=== PATIENT | female | born 1980 | race Caucasian/White ===

== ENCOUNTER 2019-08-16 12:24 | Inpatient (IN) ==
[2019-08-16] MEDS ORDERED: TUBERSOL ID ONE (15:08)
[2019-08-16] MEDS ORDERED: ROBAXIN PO PRN (15:08)
[2019-08-16] MEDS ORDERED: IMODIUM PO PRN (15:08)
[2019-08-16] MEDS ORDERED: DESYREL PO PRN (15:08)
[2019-08-16] MEDS ORDERED: ATARAX PO PRN (15:08)
[2019-08-16] MEDS ORDERED: TYLENOL PO PRN (15:08)
[2019-08-16] MEDS ORDERED: D5W 1,000 ML IV PRN (15:08)
[2019-08-16] MEDS ORDERED: SINEMET 25/100 PO PRN (15:08)
[2019-08-16] MEDS ORDERED: MOTRIN PO PRN (15:08)
[2019-08-16] MEDS ORDERED: SENOKOT PO PRN (15:08)
[2019-08-16] MEDS ORDERED: PHENOBARBITAL IV PRN (15:08)
[2019-08-16] MEDS ORDERED: MAALOX PLUS LIQUID PO PRN (15:08)
[2019-08-16] MEDS ORDERED: SEROQUEL PO PRN (15:08)
[2019-08-16] MEDS ORDERED: ZOFRAN IV PRN (15:08)
[2019-08-16] MEDS ORDERED: ZOFRAN ODT PO PRN (15:08)
[2019-08-16] MEDS ORDERED: LIBRIUM PO PRN (15:08)
[2019-08-16] MEDS ORDERED: DULCOLAX PR PRN (15:08)
[2019-08-16] MEDS ORDERED: BENTYL PO PRN (15:08)
[2019-08-16] MEDS ORDERED: NICODERM PATCH TD PRN (15:08)
[2019-08-16] MEDS ORDERED: SUBUTEX SL SCH (15:15)
[2019-08-16 16:04] LABS: HEMATOCRIT 36.6 % (37.0-47.0); HEMOGLOBIN 12.4 g/dL (12.0-16.0); MCH 27.9 PG (27-31); MCHC 33.9 g/dL (33-37); MCV 82.4 FL (81-99); MPV 11.5 FL (7.4-10.4); RBC 4.44 XMIL (4.2-5.4); RDW 15.1 % (11.5-14.5); WBC 11.51 X1000 (4.8-10.8)
[2019-08-16 16:23] LABS: AGAP 12; ALBUMIN 3.2 g/dL (3.5-5.0); ALKALINE PHOSPHATASE 69 U/L (32-104); AMYLASE 22 U/L (20-200); BUN 3 mg/dL (8-22); CALCIUM 9.1 mg/dL (8.8-10.2); CHLORIDE 103 mmol/L (98-107); COSMO 269; CREATININE 0.3 mg/dL (0.5-0.9); ESTIMATED GFR > 60; GLUCOSE 99 mg/dL (70-104); GOT 23 U/L (10-30); GPT 23 U/L (10-36); LIPASE 12 U/L (13-60); POTASSIUM 3.8 mmol/L (3.5-5.1); SODIUM 136 mmol/L (136-145); TCO2 21 mmol/L (25-35)
[2019-08-16 16:25] LABS: INR 0.98; PROTIME 13.5 Seconds (11.0-16.0)
[2019-08-16 17:44] LABS: URINE SOURCE VOIDED
[2019-08-16 17:54] LABS: BILIRUBIN URINE NEGATIVE (NEGATIVE); BLOOD URINE NEGATIVE (NEGATIVE); CLARITY CLEAR (CLEAR); COLOR YELLOW; GLUCOSE URINE NEGATIVE (NEGATIVE); KETONE URINE NEGATIVE (NEGATIVE); LEUKOCYTES URINE NEGATIVE (NEGATIVE); NITRITE URINE NEGATIVE (NEGATIVE); PROTEIN URINE NEGATIVE (NEGATIVE); UROBILINOGEN URINE NORMAL
[2019-08-16 20:27] LABS: UR AMPHETAMINES QUAL NONE DETECTED (NONE DETECT); UR BARBITUATES QUAL NONE DETECTED (NONE DETECT); UR BENZODIAZEPIN QUAL NONE DETECTED (NONE DETECT); UR CANNABINOIDS QUAL PRESUMPTIVE POSITIVE (NONE DETECT); UR COCAINE QUAL PRESUMPTIVE POSITIVE (NONE DETECT); UR METHADONE QUAL NONE DETECTED (NONE DETECT); UR METHAMPHETAMINE QUAL PRESUMPTIVE POSITIVE (NONE DETECT); UR OPIATES QUAL PRESUMPTIVE POSITIVE (NONE DETECT)
[2019-08-16 20:28] LABS: UR OXYCODONE QUAL NONE DETECTED (NONE DETECT); UR PCP QUAL NONE DETECTED (NONE DETECT); UR PROPOXYPHENE QUAL NONE DETECTED (NONE DETECT); UR TCA QUAL NONE DETECTED (NONE DETECT)
[2019-08-16] MEDS: SUBUTEX SL SCH (20:42)
[2019-08-17] MEDS: PROTONIX PO SCH ×2 (05:27→07:24)
[2019-08-17] MEDS: SUBUTEX SL SCH ×3 (05:29→20:36)
--- NOTE | 2019-08-17 11:24 | PROGRESS NOTE ---
DATE: 08/17/2019 SUBJECTIVE: The patient notes that she feels terrible, but she actually feels a little bit better than she did. Denies any fevers or chills. She is still having muscle aches and sweating. OBJECTIVE: Vital Signs: Reviewed. General: She is awake and alert. She is in no respiratory distress. HEENT: Normocephalic. Neck: Supple. Cardiovascular: Regular rate. No murmurs. Chest: Clear and nonlabored. Abdomen: Soft. Extremities: Moves all extremities. Neurologic: No focal changes. ASSESSMENT: 1. Nausea and vomiting. 2. Abdominal pain. 3. Myalgias. 4. Paresthesias. 5. Paroxysmal sweating. 6. Opiate abuse withdrawal. 7. Polysubstance abuse. 8. . PLAN: We will continue on Subutex. Continue to head counselor. Further orders as needed. cc: Marshall Gibson MD
[2019-08-17] MEDS: VITAMIN B-1 PO SCH (13:11)
[2019-08-17] MEDS: FOLIC ACID PO SCH (13:11)
[2019-08-17] MEDS: THERA M PLUS PO SCH (13:12)
[2019-08-18] MEDS: SUBUTEX SL SCH ×2 (04:17→17:40)
[2019-08-18] MEDS: PROTONIX PO SCH (12:27)
[2019-08-18] MEDS: THERA M PLUS PO SCH (12:27)
[2019-08-18] MEDS: FOLIC ACID PO SCH (12:27)
[2019-08-18] MEDS: VITAMIN B-1 PO SCH (12:27)
--- NOTE | 2019-08-18 13:05 | HISTORY AND PHYSICAL ---
CHIEF COMPLAINT: Nausea, vomiting. HISTORY OF PRESENT ILLNESS: The patient is a 38-year-old female who presented to [facility] secondary to nausea, vomiting, abdominal pain, and myalgias. Notes that she is , and she wants to get her life back under control for herself and her baby. SOCIAL HISTORY: The patient is . She is unemployed. Lives at home in [place]. PAST MEDICAL HISTORY: Untreated hepatitis C, bipolar, depression, anxiety, history of seizures due to withdrawal. MEDICATION: She is not on any current medications. ALLERGIES: No known drug allergies. REVIEW OF SYSTEMS: CINA score is 15 secondary to nausea, vomiting, abdominal pain, myalgias, frequent hot and cold temperature changes, frequent sweating, restless, fidgety, yawning, watery eyes, unable to sit still, poor appetite. Denies any chest pain or palpitations. Denies any fevers. Denies dysuria, frequency, urgency, hesitancy, polyuria or polydipsia. Denies skin rashes, weight loss, or weight gain. SUBSTANCE ABUSE HISTORY: The patient was in [facility] for 12 weeks in 2012, remained sober for approximately 5 years. Notes that substance use has caused legal problems. She has a court date soon. Started alcohol as early as age 6, rarely drinks. Started marijuana as early as age 8, was a former daily user, has not used recently. Started meth at 11, currently uses twice daily. Started opiates at 14, currently uses morphine or heroin IV daily. Started nicotine as early as age 9, currently smokes 2 to 3 cigarettes a day. FAMILY HISTORY: Positive for substance use and abuse. PHYSICAL EXAMINATION: VITAL SIGNS: Reviewed. GENERAL: The patient is awake, and alert. She is in no current respiratory distress. HEENT: Normocephalic. NECK: Supple. CARDIOVASCULAR: Regular rate. No murmurs. CHEST: Clear. Nonlabored. ABDOMEN: Soft. EXTREMITIES: Moves all extremities. NEUROLOGIC: No focal changes. SKIN: Warm, dry, no rashes. ASSESSMENT: 1. Nausea and vomiting. 2. Abdominal pain. 3. Myalgias. 4. Paresthesias. 5. Paroxysmal sweating. 6. Opiate abuse withdrawal and stabilization. 7. Second trimester . PLAN: We are going to admit the patient to the hospital, place her on Subutex, wean down as tolerated. Continue counseling. Further orders as needed. ,, cc: Marshall Gibson MD
--- NOTE | 2019-08-18 18:22 | PROGRESS NOTE ---
DATE: 08/18/2019 SUBJECTIVE: The patient notes that overall she is starting to feel better. Denies any fevers, chills. Still having some muscle aches and occasional sweating episodes. OBJECTIVE: Vital signs reviewed. She is awake. Temperature 97, pulse 80, respiratory rate 18, BP 119/76. General: The patient is in no current respiratory distress.HEENT: Normocephalic. Neck supple. Cardiovascular: Regular rate. No murmurs. Chest clear, nonlabored. Abdomen soft. Extremities: Moves all extremities. Neurologic: No focal changes. ASSESSMENT: 1. Nausea and vomiting. 2. Abdominal pain. 3. Myalgias. 4. Paresthesias. 5. Paroxysmal sweating. 6. Opiate abuse, withdrawal and stabilization. 7. Polysubstance use and abuse. 8. . PLAN: We will continue the patient in the hospital. Continue Subutex. We will decrease to 4 mg twice daily today. If she tolerates, hopefully she can discharge home tomorrow. cc: Marshall Gibson MD
[2019-08-19 03:51] VITALS: BP 118/71
[2019-08-19] MEDS: PROTONIX PO SCH (06:33)
[2019-08-19] MEDS: SUBUTEX SL SCH (06:33)
[2019-08-19] MEDS: VITAMIN B-1 PO SCH (09:19)
[2019-08-19] MEDS: FOLIC ACID PO SCH (09:19)
[2019-08-19] MEDS: THERA M PLUS PO SCH (09:19)
[2019-08-19] MEDS ORDERED: FLU VACCINE IM ONE (09:47)
--- NOTE | 2019-08-19 13:19 | DISCHARGE SUMMARY ---
ADMISSION DATE: 08/16/2019 DISCHARGE DATE: 08/19/2019 DISCHARGE DIAGNOSIS: 1. Nausea, vomiting. 2. Abdominal pain. 3. Myalgias. 4. Paresthesias. 5. Paroxysmal swelling. 6. Opioid abuse withdrawal and stabilization. 7. . 8. Multiple drug use and abuse. CONSULTATIONS: None. PROCEDURES: None. BRIEF HOSPITAL COURSE: The patient is a 38-year-old female who presented to [facility]. She is approximately 5 months . She has been using and abusing polysubstances and desires to get her life under control. She was admitted and placed on Subutex as well as other symptomatic medications. Thankfully on discharge she is awake, alert. She is in no distress. Overall, she is feeling better. DISPOSITION: Patient will be discharged home on Subutex 4 mg twice daily. Discussed that she needs to follow up outpatient with primary care and treatment facility of choice. She needs outpatient life counseling as well as drug counseling. She needs to avoid all persons, places, situations which she has been using and abusing in the past. Patient acknowledges understanding. cc: Marshall Gibson MD
== END 2019-08-19 11:00 | disposition home or self-care (01) | DRG 832 ==
LOC: P.DIRADM 13:36 → P.MEDSURG 14:13
PROVIDERS: ADMIT Family Medicine; ATTEND Family Medicine